=== PATIENT | male | born 1965 | race Caucasian/White ===

== ENCOUNTER 2016-12-27 10:40 | Emergency (ER) | payer OTHER ==
[2016-12-27 10:50] VITALS: BP 139/93
== END 2016-12-27 12:11 | disposition home or self-care (01) ==
LOC: ED 10:40
DX: S51.811D Laceration without foreign body of right forearm, subsequent encounter (principal); X58.XXXD Exposure to other specified factors, subsequent encounter; Y99.8 Other external cause status; Y92.89 Other specified places as the place of occurrence of the external cause